=== PATIENT | female | born 1960 | race African-American/Black ===

== ENCOUNTER → 2019-07-15 | Outpatient (CLI) | payer MEDICARE, MEDICAID ==
[2017-01-31 14:30] VITALS: BP 123/70
[~2019-07-15] MED LIST: CELE100C PO; DOCU-109 PO; FLUT9.9S NS; HYDR-2765 PO; HYDR-3164 PO; OMEG10005 PO; Oxycodone Hcl/Acetaminophen PO; TIZA4TAB8 PO; TOPI100T8 PO; cyclobenzaprine; naproxen
--- NOTE | 2019-07-15 16:40 | KCIC ---
EXAM: Lumbar spine, 8 views; thoracic spine, 2 views. HISTORY: Pain. COMPARISON: CT dated 01/30/2017. FINDINGS: Lumbar spine: 8 views of the lumbar spine are obtained. There is mild thoracolumbar scoliosis. There is minimal grade 1 anterolisthesis of L4 and L5. The vertebral bodies are normal in height and the disc spaces are preserved. There is minimal endplate remodeling at multiple levels. There is facet arthropathy at the lower lumbar levels. Thoracic spine: 4 views of the thoracic spine are obtained in standing and supine positions. There is no listhesis. The vertebral bodies are normal in height and the disc spaces are preserved. There is mild endplate remodeling at multiple levels. There is minimal S-shaped thoracal lumbar scoliosis. IMPRESSION: 1. Multilevel degenerative change involving the thoracic and lumbar spine, described above. 2. Minimal and shape focal lumbar scoliosis. 3. Minimal grade 1 anterolisthesis of L4 and L5. This appears to minimally increase between standing and supine positions. Electronically signed by: Elodia Fenton MD (07/15/2019 4:37 PM) [id number]
== END | disposition home or self-care (01) ==
LOC: KCIC 15:15
PROVIDERS: ATTEND Surgery
DX: M43.16 Spondylolisthesis, lumbar region (principal); M47.815 Spondylosis without myelopathy or radiculopathy, thoracolumbar region; M12.88 Other specific arthropathies, not elsewhere classified, other specified site; M41.86 Other forms of scoliosis, lumbar region
CPT/HCPCS: 72072; 72110

== ENCOUNTER → 2019-07-17 | Outpatient (CLI) | payer MEDICARE, MEDICAID ==
[2017-01-31 14:30] VITALS: BP 123/70
--- NOTE | 2019-07-17 13:47 | RAD ---
EXAM: Abdomen sonogram. HISTORY: Pain. TECHNIQUE: Sonographic imaging of the abdomen was performed. COMPARISON: None. FINDINGS: The liver is normal in size. No focal hepatic lesion is seen. The gallbladder is unremarkable. The common bile duct is normal in caliber for patient age. The kidneys, spleen, pancreas, aorta and inferior vena cava are unremarkable. IMPRESSION: Unremarkable abdomen sonogram. Electronically signed by: Elodia Fenton MD (07/17/2019 1:44 PM) [place] [id number]
== END | disposition home or self-care (01) ==
LOC: US 12:56
PROVIDERS: ATTEND Specialist
DX: K81.2 Acute cholecystitis with chronic cholecystitis (principal)
CPT/HCPCS: 76700

== ENCOUNTER → 2019-08-13 | Outpatient (CLI) | payer MEDICARE, MEDICAID ==
[2017-01-31 14:30] VITALS: BP 123/70
[~2019-08-13] VITALS: Ht 160 cm; Wt 72.6 kg
[~2019-08-13] MED LIST changes: +SINCALIDE 1.45 MCG in IV NORMAL SALINE 50ML 30 ML IV ONE
--- NOTE | 2019-08-13 12:14 | RAD ---
EXAM: Nuclear hepatobiliary scan. HISTORY: Pain. TECHNIQUE: Following intravenous administration of 5.5 mCi Tc 99m Choletec, anterior images of the abdomen were obtained at five minute intervals through one hour. Subsequently, 1.45 mcg CCK was administered and additional images to assess gallbladder ejection fraction were obtained. FINDINGS: There is prompt radiotracer uptake by the liver. No focal defect is seen. There is normal excretion into the biliary tree. The gallbladder is visualized within 5 minutes and there is free flow into the duodenum. The gallbladder ejection fraction is 84%. IMPRESSION: Slight increased gallbladder ejection fraction of 84%. This can be seen with biliary hyperkinesia. Electronically signed by: Elodia Fenton MD (08/13/2019 12:12 PM) [email or web address]
== END | disposition home or self-care (01) ==
LOC: NM 07:35
PROVIDERS: ATTEND Specialist
DX: R10.9 Unspecified abdominal pain (principal); M79.7 Fibromyalgia; Z90.710 Acquired absence of both cervix and uterus
CPT/HCPCS: 78227; A9537; J2805

== ENCOUNTER → 2020-05-12 | Outpatient (CLI) | payer OTHER, MEDICAID ==
[2017-01-31 14:30] VITALS: BP 123/70
[~2020-05-12] MED LIST changes: -SINCALIDE 1.45 MCG in IV NORMAL SALINE 50ML 30 ML IV ONE
--- NOTE | 2020-05-12 16:03 | KCIC ---
MRI Cervical Spine Without Contrast History:Radiculopathy, intermittent bilateral upper and lower extremity radiculopathy Technique: Multiplanar, multi sequential noncontrast MR imaging was performed of the cervical spine. Comparison: May 16, 2014 Findings: There is some motion degradation. Cervical cord caliber is within normal limits without defined or expansile signal abnormality, limited motion for subtle signal change due to motion. Cervical vertebral body stature is overall maintained. There is negligible posterior subluxation C6 relative to C7. There is moderate to severe degenerative disc disease at C5-6 and to lesser degree at C4-5 and C6-7. There is trace C5-6 endplate edema likely reactive/degenerative in etiology. C2-C3: Spinal canal and neural foramina are adequate. C3-C4: There is now shallow protrusion centrally about 1 to 2 mm AP, mild indentation upon the ventral thecal sac. Central canal is minimally narrowed about 9 mm. Neural foramina are adequate. There is right facet degenerative change. C4-C5: There is minimal disc osteophyte complex with mild indentation upon the ventral thecal sac greater in the right lateral recess as seen previously, central canal minimally narrowed about 9 to 10 mm also with mild right lateral recess stenosis. There is right uncovertebral degenerative change. There is mild bilateral facet degenerative change. Left neural foramen is adequate. There is again moderate narrowing of the right neural foramen. C5-C6: There is minimal disc osteophyte complex and shallow protrusion indenting the ventral thecal sac greater in the left paracentral region. There is more focal effacement of ventral subarachnoid space with contact of the cord, central canal narrowed to about 7 mm. There is bilateral uncovertebral and facet degenerative change. There is likely moderate to severe right and at least mild left neural foramina compromise. C6-C7: There is again minimal disc osteophyte complex and shallow protrusion, also very small extrusion extending slightly below the intervertebral disc space centrally. Central canal is narrowed to about 8 mm also with mild left lateral recess stenosis. There is mild buckling of the ligamentum flavum. There is uncovertebral degenerative change greater on the left. There is moderate to severe narrowing of the left neural foramen, very mild narrowing on the right. C7-T1: Spinal canal is adequate. There is likely minimal narrowing of the left neural foramen due to facet and uncovertebral degenerative change. Right neural foramen is adequate. Impression: 1. There is spinal stenosis about 7 mm at C5-6 and to a lesser degree C3-4, C4-5, and C6-7. 2. Facet and uncovertebral degenerative change contributes to multilevel cervical neural foramina compromise as stated greatest on the right at C5-6 and on the left at C6-7, lesser degree of narrowing on the right at C4-5 and on the left at C5-6. 3. There is degenerative disc disease greatest at C5-6 and to a lesser degree at C4-5 and C6-7. There is mild spondylosis. Electronically signed by: Chavez Vergara MD (05/12/2020 4:00 PM) [id number]
--- NOTE | 2020-05-12 16:11 | KCIC ---
MRI Thoracic Spine without contrast History: Radiculopathy, intermittent bilateral upper and lower extremity radiculopathy Technique: Multiplanar, multi sequential noncontrast MR imaging was performed of the thoracic spine. Comparison: None Findings: There is some motion degradation. Thoracic cord caliber is within normal limits without defined or expansile signal abnormality. There is [id number] degenerative disc disease T6-7 through T9-10, endplate edema anteriorly at T7-8 and T9-10 likely reactive/degenerative in etiology. There is no significant thoracic spinal stenosis at any level. Thoracic neural foramina are not significantly narrowed, minimal posterior neural foramina compromise by facets such as on the right at T6-T7 and T7-8 and on the left at T7-8. There is some fluid within some more distended esophagus. There is somewhat nodular appearance focus of signal change of the posterior right lung abutting the pleural surface about 1 cm in size otherwise difficult to characterize. There is a small 0.5 cm T2 hyperintense lesion of the left thyroid gland. Impression: 1. There is no significant thoracic spinal stenosis or neural foramina compromise. There is degenerative disc disease of mid to inferior thoracic levels, endplate edema anteriorly at T7-8 and T9-10 likely reactive/degenerative in etiology. 2. There is nodular focus of signal change of the posterior right lung concerning for a lung nodule, more accurately compared by chest CT. 3. There is some fluid in somewhat distended esophagus. Electronically signed by: Chavez Vergara MD (05/12/2020 4:09 PM) [place] [id number]
--- NOTE | 2020-05-12 16:25 | KCIC ---
MRI Lumbar Spine without contrast History: Bilateral upper and lower extremity radiculopathy Technique: Multiplanar, multi sequential noncontrast MR imaging was performed of the lumbar spine. Comparison: None available Findings: There is mild motion. Lumbar vertebral body stature is maintained. There is negligible anterior spondylolisthesis L4-5. There is mild L4-5 degenerative disc disease, mild disc desiccation L3-4. Conus terminates at the superior aspect of L1. 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 There is some edema of the posterior left L4 pedicle extending to the facet articular processes more likely reactive/degenerative in etiology. There is degree of diffuse narrowing of the lumbar neural foramina on a developmental basis. L1-L2: This level was not included on the axial images. Neural foramina and spinal canal are adequate. L2-L3: There is mild buckling of the ligamentum flavum. Neural foramina and spinal canal are adequate. L3-L4: There is minimal posterior bulge. There is mild buckling of the ligamentum flavum and facet degenerative change. There is mild narrowing of the far lateral recesses bilaterally. There is mild narrowing of the right neural foramen primarily from posteriorly by facet, left neural foramen adequate. L4-L5: There is negligible posterior bulge. There is mild buckling of the ligamentum flavum and facet degenerative change, minimal fluid in the right facet articulation. There is mild narrowing of the far lateral recesses bilaterally. There is mild to moderate left and mild right neural foramina compromise. L5-S1: Spinal canal is adequate. There is mild facet degenerative change, minimal narrowing of the neural foramina greater on the left. Impression: 1. There is mild narrowing of the far lateral recesses bilaterally at L3-4 and L4-5. There is mild L4-5 degenerative disc disease. There is degree of diffuse narrowing of the lumbar neural foramina on a developmental basis, overall mild to moderate narrowing on the left at L4-5 and other minimal narrowing on the right at L4-5 and L3-4 and bilaterally at L5-S1. 2. There is edema of the posterior left L4 pedicle extending to the facet articular processes more likely to be reactive/degenerative in etiology. Electronically signed by: Chavez Vergara MD (05/12/2020 4:22 PM) [place] [id number]
--- NOTE | 2020-05-20 18:13 | KCIC ---
Bilateral digital screening mammograms with 3-D tomosynthesis: Reason for examination: Routine screening. Comparison is made to previous studies dated 05/13/2019 and 03/14/2018. Bilateral mammograms in CC and oblique projections were obtained with 2-D imaging and 3-D tomosynthesis imaging on a Siemens Inspiration unit and reviewed on the workstation. Interpretation was made with the benefit of CAD. The skin and nipples show no abnormalities. No abnormal axillary lymph nodes are seen. The breast parenchyma is heterogeneously dense. (Breast density: Category C.) There are no dominant masses, suspicious calcifications or architectural distortion. Impression: No evidence of malignancy. Recommend routine screening. Your patient's mammogram demonstrates that she has dense breast tissue (breast density category C or D), which could hide abnormalities, and if she has other risk factors for breast cancer that have been identified, she might benefit from supplemental screening tests that may be suggested by you as her ordering physician. Dense breast tissue, in and of itself, is a relatively common condition. Therefore, this information is not provided to cause undue concern, but rather to raise your awareness and to promote discussion with your patient regarding the presence of other risk factors, in addition to dense breast tissue. Your patient's mammography results will be sent to her. BI-RAD Category 1: Negative. "Our facility is accredited by the [employer] Mammography Program." This patient's information has been entered into a reminder system for the patient to be notified with the results of her examination and a target date for the next mammogram. Electronically signed by: Jennifer Ruiz MD (05/20/2020 6:10 PM) [id number]
== END | disposition home or self-care (01) ==
LOC: KCIC MRI 13:07
PROVIDERS: ATTEND Surgery
DX: Z12.31 Encounter for screening mammogram for malignant neoplasm of breast (principal); R91.1 Solitary pulmonary nodule; M50.322 Other cervical disc degeneration at C5-C6 level; M48.02 Spinal stenosis, cervical region; M47.23 Other spondylosis with radiculopathy, cervicothoracic region; M25.78 Osteophyte, vertebrae; M51.36 Other intervertebral disc degeneration, lumbar region; M48.061 Spinal stenosis, lumbar region without neurogenic claudication; M51.34 Other intervertebral disc degeneration, thoracic region; M48.04 Spinal stenosis, thoracic region
CPT/HCPCS: 72141; 72146; 72148; 77063; 77067

== ENCOUNTER → 2020-05-28 | Outpatient (CLI) | payer OTHER, MEDICAID ==
[2017-01-31 14:30] VITALS: BP 123/70
[2020-05-28 10:14] LABS: BASO % 1 % (0-3); EOS % 1 % (0-3); HEMATOCRIT 41.2 % (36.0-47.0); LYMPH # 1.2 x10^3/uL (1.0-4.8); LYMPH % 36 % (24-48); MEAN CORPUSCULAR HEMOGLOBIN 31 pg (25-35); MEAN CORPUSCULAR HGB CONC 34 g/dL (31-37); MEAN CORPUSCULAR VOLUME 90 fL (79-100); MONO # 0.2 x10^3/uL (0.0-1.1); MONO % 8 % (0-9); NEUT # 1.8 x10^3/uL (1.8-7.7); NEUT % 54 % (31-73); PLATELET COUNT 199 x10^3/uL (140-400); RED BLOOD COUNT 4.57 x10^6/uL (3.50-5.40); RED CELL DISTRIBUTION WIDTH 13.6 % (11.5-14.5); WHITE BLOOD COUNT 3.2 x10^3/uL (4.0-11.0)
== END | disposition home or self-care (01) ==
LOC: LAB 09:37
PROVIDERS: ATTEND Surgery
DX: Z00.00 Encounter for general adult medical examination without abnormal findings (principal)
CPT/HCPCS: 36415; 85025